=== PATIENT | female | born 1940 | race Caucasian/White ===

== ENCOUNTER 2016-05-08 13:17 | Emergency (ER) | payer MEDICARE ==
[2016-05-08 13:58] LABS: URINE BILIRUBIN 3+ (NEGATIVE); URINE BLOOD 1+ (NEGATIVE); URINE GLUCOSE (UA) NEGATIVE (NEGATIVE); URINE LEUKOCYTE ESTERASE 1+ (NEGATIVE); URINE NITRITE POSITIVE (NEGATIVE); URINE PROTEIN 1+ (NEGATIVE)
[2016-05-08 13:59] LABS: URINE APPEARANCE SL CLOUDY; URINE COLOR RED; URINE UROBILINOGEN 8 mg/dL (0-1 mg/dl)
[2016-05-08 14:21] LABS: URINE EPITHELIAL CELLS FEW /hpf; URINE WBC >100 /hpf
[2016-05-08 14:22] LABS: URINE CRYSTALS 3+DRUG CRYSTALS /hpf
[2016-05-08 14:23] LABS: URINE BACTERIA OCC BACILLI
[2016-05-08] MEDS ORDERED: PHENAZOPYRIDINE HCL 200 MG TABLET ONE ×2 (14:27→14:32)
[2016-05-08] MEDS ORDERED: NITROFURANTOIN/NITROFURAN MAC 100 MG CAPSULE ONE (14:28)
== END 2016-05-08 14:44 | disposition home or self-care (01) ==
LOC: ED 13:17
DX: N39.0 Urinary tract infection, site not specified (principal); Z86.711 Personal history of pulmonary embolism
CPT/HCPCS: 87086; 81001; 99283 ×2; A9270 ×3

== ENCOUNTER 2016-06-13 10:13 | Emergency (ER) | payer MEDICARE ==
[2016-06-13] MEDS ORDERED: ALBUTEROL/IPRATROPIUM 2.5/0.5 MG 3 ML/EACH DOSE ONE (10:48)
[2016-06-13 11:08] LABS: ABSOLUTE NEUTROPHIL COUNT 2.9 K/mm3 (1.8-7.7); BASO % 0.5 % (0.2-1.0); EOS # 0.2 (0.0-0.5); EOS % 3.6 % (0.9-2.9); HEMATOCRIT 41.7 % (37.0-47.0); HEMOGLOBIN 13.5 gm/l (12.0-16.0); IMM NEUT% 0.2 % (0-1); LYMPH # 1.5 (1.0-4.8); LYMPH % 26.8 % (15-45); MEAN CELL VOLUME 92.3 fl (81.0-99.0); MEAN CORPUSCULAR HEMOGLOBIN 29.9 pg (27.0-31.0); MEAN CORPUSCULAR HGB CONC 32.4 g/dl (33.0-37.0); MEAN PLATELET VOLUME 9.8 fl (7.4-10.4); MONO # 0.9 (0.0-0.8); NEUT % 52.9 % (43-75); PLATELET COUNT 247 K/mm3 (130-400); RED CELL DISTRIBUTION WIDTH 13.5 % (11.5-14.5)
--- NOTE | 2016-06-13 11:46 | RAD ---
06/13/2016 11:42 AM CHEST - 2 VIEWS History: Cough for 3 days Comparison: None Findings: Two views of the chest are obtained. The lungs are clear with out effusion or pneumothorax. The cardiomediastinal silhouette is unremarkable.. The osseous structures are intact.. IMPRESSION: No acute intrathoracic process.
[2016-06-13 11:59] LABS: CALCIUM 9.5 mg/dL (8.6-10.3)
[2016-06-13 12:00] LABS: ALB/GLOB RATIO 1.4 (>1.0)
[2016-06-13] MEDS ORDERED: PREDNISONE 20 MG TABLET ONE (12:13)
== END 2016-06-13 12:46 | disposition home or self-care (01) ==
LOC: ED 10:13
DX: J20.9 Acute bronchitis, unspecified (principal); J45.909 Unspecified asthma, uncomplicated; F32.9 Major depressive disorder, single episode, unspecified; Z86.711 Personal history of pulmonary embolism; Z79.899 Other long term (current) drug therapy; Z88.5 Allergy status to narcotic agent; Z88.8 Allergy status to other drugs, medicaments and biological substances
CPT/HCPCS: 83605; 85025; 80053; 71020; 94640; 99284; 93005; 99283; J7512